=== PATIENT | male | born 1965 | race Caucasian/White ===

== ENCOUNTER 2017-05-07 12:07 | Inpatient (IN) | payer OTHER ==
[~2017-05-07] VITALS: Ht 167.6 cm; Wt 92.7 kg
[~2017-05-07 12:07] MED LIST: AMOXICILLIN500 MG PO; BACTRIM DS 8001 TA1 PO; BENADRYL25 M1 PO; BOTOX IJ; CARAFATE1 G1 PO; CIPROFLOXACIN500 MG PO; CLARITIN10 MG PO; DELTASONE20 MG PO; EPIPEN 0.3MG0.3 MG IM; ERYTHROMYCIN5 MG/G2 OPH; FISH OIL1000 MG PO; FLONASE 0.05% 121 EA NAS; FLONASE ALLERG9.9 ML NAS; Fioricet 325 MG1 TAB PO; HYDROCHLOROTH12.5 M2 PO; IBUPROFEN 30 M800 MG PO; KEFLEX500 MG PO; NORCO 325 MG-51 TAB PO; PERCOCET 325 MG1 TA2 PO; PRILOSEC20 MG PO; PRILOSEC40 MG PO; SILVADENE1% T; TOBREX 5 ML5 M1 OPH; TOPIRAMATE50 M2 PO; TRICOR134 MG PO; VENTOLIN H0.09 MG/AC INH; VERAPAMIL HCL180 MG PO; XANAX1 MG PO; ZANTAC 150150 MG PO
[2017-05-07] MEDS ORDERED: FENOFIBRATE120 MG PO (12:15)
[2017-05-07 12:16] VITALS: BP 137/96
[2017-05-07 13:38] LABS: BASO % 0.4 % (0.0-1.0); EOS # 0.2 10*3/uL (0.0-0.4); EOS % 1.7 % (1.0-4.0); HEMATOCRIT 48.3 % (42.0-52.0); HEMOGLOBIN 16.2 g/dl (14.0-18.0); LYMPH # 2.4 10*3/uL (1.3-4.4); LYMPH % 24.9 % (27.0-41.0); MEAN CELL VOLUME 88.6 fl (80.0-94.0); MEAN CORPUSCULAR HGB 29.7 pg (27.0-31.0); MEAN CORPUSCULAR HGB CONC 33.5 g/dl (33.0-37.0); MONO # 0.6 10*3/uL (0.1-1.0); MONO % 6.5 % (3.0-9.0); NEUT # 6.5 10*3/uL (2.3-7.9); NEUT % 66.2 % (47.0-73.0); PLATELET COUNT AUTOMATED 282 10*3/uL (130-400); RED BLOOD COUNT 5.45 10*6/uL (4.50-5.90); RED CELL DISTRI WIDTH 12.7 % (0-14.5); WHITE BLOOD COUNT 9.8 10*3/uL (4.8-10.8)
[2017-05-07 13:49] LABS: PROTHROMBIN TIME 10.8 SECONDS (9.0-12.4)
[2017-05-07 13:53] LABS: BILIRUBIN NEGATIVE (NEGATIVE); BLOOD NEGATIVE (NEGATIVE); CLARITY CLEAR (CLEAR); COLOR YELLOW (YELLOW); GLUCOSE NEGATIVE (NEGATIVE); KETONE NEGATIVE (NEGATIVE); LEUKO ESTERASE NEGATIVE (NEGATIVE); NITRITE NEGATIVE (NEGATIVE); PROTEIN 1+ (NEGATIVE); SPECIFIC GRAVITY 1.025 (1.005-1.030); UROBILINOGEN 0.2 E.U./dl (0.2-1.0)
[2017-05-07 13:53] LABS: ALBUMIN 4.4 gm/dl (3.1-4.5); ALKALINE PHOSPHATASE 75 U/L (45-117); BILIRUBIN, TOTAL 0.5 mg/dl (0.2-1.0); BUN 13 mg/dl (7-24); CARBON DIOXIDE 25 mmol/L (21-32); CHLORIDE 106 mmol/L (98-107); EST GLOM FILT AFRICAN AMERICAN > 60 ml/min; GLUCOSE 87 mg/dL (65-99); MAGNESIUM 1.9 mg/dL (1.5-2.1); POTASSIUM 4.1 mmol/L (3.5-5.1); SGOT/AST 23 IU/L (3-35); SGPT/ALT 32 U/L (12-78); SODIUM 139 mmol/L (136-145); TOTAL PROTEIN 7.9 gm/dL (6.4-8.2)
[2017-05-07 13:55] LABS: URINE AMPHETAMINES < 1000 (1000ng/ml); URINE BARBITURATES < 200 (200ng/ml); URINE COCAINE < 300 (300ng/ml)
[2017-05-07 14:00] LABS: BACTERIA 2+; EPITHELIAL CELLS 0-2; URINE REFLEX COMMENT YES (NO); WBC 0-2 wbc/hpf (0-5)
[2017-05-07 14:31] VITALS: BP 130/77
[2017-05-07] MEDS ORDERED: PROVENTIL HFA6.7 GM INH (14:51)
[2017-05-07 15:00] VITALS: BP 130/77
[2017-05-07 16:00] VITALS: BP 115/78
[2017-05-07 20:00] VITALS: BP 112/70
[2017-05-08] VITALS: BP 106/66
[2017-05-08 08:00] VITALS: BP 109/64
[2017-05-08 12:00] VITALS: BP 105/59
[2017-05-08 16:00] VITALS: BP 128/74
[2017-05-08 20:00] VITALS: BP 116/73
[2017-05-09] VITALS: BP 94/54
[2017-05-09 08:00] VITALS: BP 117/79; BP 123/70
[2017-05-09 12:00] VITALS: BP 113/61
== END 2017-05-09 14:31 | disposition left against medical advice (07) | DRG 894 ==
LOC: ED 12:07 → EDHOLD 13:28 → 5E 13:28
PROVIDERS: Emergency Medicine
DX: F10.29 Alcohol dependence with unspecified alcohol-induced disorder (principal); F11.20 Opioid dependence, uncomplicated; I10 Essential (primary) hypertension; F13.20 Sedative, hypnotic or anxiolytic dependence, uncomplicated; G43.901 Migraine, unspecified, not intractable, with status migrainosus; H54.8 Legal blindness, as defined in USA; E78.5 Hyperlipidemia, unspecified; F41.1 Generalized anxiety disorder; G89.29 Other chronic pain; K21.9 Gastro-esophageal reflux disease without esophagitis; T42.4X5A Adverse effect of benzodiazepines, initial encounter; F17.210 Nicotine dependence, cigarettes, uncomplicated; Z53.21 Procedure and treatment not carried out due to patient leaving prior to being seen by health care provider; Z88.1 Allergy status to other antibiotic agents; Z88.8 Allergy status to other drugs, medicaments and biological substances; Z79.899 Other long term (current) drug therapy; Z90.49 Acquired absence of other specified parts of digestive tract; Z80.9 Family history of malignant neoplasm, unspecified; Z82.5 Family history of asthma and other chronic lower respiratory diseases; Z71.6 Tobacco abuse counseling; Y92.89 Other specified places as the place of occurrence of the external cause

== ENCOUNTER 2017-06-19 12:59 | Emergency (ER) | payer OTHER ==
[~2017-06-19] VITALS: Ht 167.6 cm; Wt 90.7 kg
[~2017-06-19 12:59] MED LIST changes: +FENOFIBRATE120 MG PO; +PROVENTIL HFA6.7 GM INH
[2017-06-19] MEDS ORDERED: CEPHALEXIN500 M1 PO (17:05)
== END 2017-06-19 20:00 | disposition home or self-care (01) ==
LOC: ED 12:59
DX: M79.89 Other specified soft tissue disorders (principal); F17.200 Nicotine dependence, unspecified, uncomplicated; Z79.899 Other long term (current) drug therapy; Z88.6 Allergy status to analgesic agent; Z88.1 Allergy status to other antibiotic agents

== ENCOUNTER → 2020-06-29 | Outpatient (CLI) | payer OTHER ==
[~2020-06-29] MED LIST changes: +CEPHALEXIN500 M1 PO; +LOTRISONE CREAM15 GM T; +PREDNISONE20 M1 PO
== END | disposition home or self-care (01) ==
LOC: COVID19 01:17
PROVIDERS: ATTEND Nurse Practitioner Primary Care
DX: Z20.828 Contact with and (suspected) exposure to other viral communicable diseases (principal)

== ENCOUNTER 2021-01-08 02:56 | Emergency (ER) | payer OTHER ==
[~2021-01-08] VITALS: Ht 170.1 cm; Wt 99.8 kg
[2021-01-08] MEDS ORDERED: NAPROSYN500 MG PO (03:23)
== END 2021-01-08 03:46 | disposition home or self-care (01) ==
LOC: ED 02:56
DX: S93.401A Sprain of unspecified ligament of right ankle, initial encounter (principal); S90.01XA Contusion of right ankle, initial encounter; Z79.899 Other long term (current) drug therapy; Z88.6 Allergy status to analgesic agent; Z79.2 Long term (current) use of antibiotics; Z90.49 Acquired absence of other specified parts of digestive tract; Z98.890 Other specified postprocedural states; W19.XXXA Unspecified fall, initial encounter; Y93.89 Activity, other specified; Y92.89 Other specified places as the place of occurrence of the external cause; Y99.8 Other external cause status

== ENCOUNTER 2021-03-10 22:04 | Emergency (ER) | payer OTHER ==
[~2021-03-10] VITALS: Ht 167.6 cm; Wt 81.6 kg
[~2021-03-10 22:04] MED LIST changes: +NAPROSYN500 MG PO
== END 2021-03-10 22:38 | disposition home or self-care (01) ==
LOC: ED 22:04
DX: L25.9 Unspecified contact dermatitis, unspecified cause (principal); Z88.8 Allergy status to other drugs, medicaments and biological substances; Z79.899 Other long term (current) drug therapy; Z98.890 Other specified postprocedural states

== ENCOUNTER 2021-03-14 22:48 | Emergency (ER) | payer OTHER ==
[~2021-03-14] VITALS: Ht 167.6 cm; Wt 97.5 kg
[2021-03-15] MEDS ORDERED: MEDROL DOSEPAK4 MG PO (00:26)
== END 2021-03-15 00:41 | disposition home or self-care (01) ==
LOC: ED 22:48
DX: L23.7 Allergic contact dermatitis due to plants, except food (principal); F17.200 Nicotine dependence, unspecified, uncomplicated; G89.29 Other chronic pain; I10 Essential (primary) hypertension; K21.9 Gastro-esophageal reflux disease without esophagitis; G40.909 Epilepsy, unspecified, not intractable, without status epilepticus; Z79.899 Other long term (current) drug therapy; Z88.6 Allergy status to analgesic agent; Z90.49 Acquired absence of other specified parts of digestive tract; Z88.5 Allergy status to narcotic agent; Z88.8 Allergy status to other drugs, medicaments and biological substances

== ENCOUNTER 2021-04-26 10:34 | Emergency (ER) | payer OTHER ==
[~2021-04-26 10:34] MED LIST changes: +MEDROL DOSEPAK4 MG PO
[2021-04-26] MEDS ORDERED: CEPHALEXIN500 M1 PO (13:17)
== END 2021-04-26 13:30 | disposition home or self-care (01) ==
LOC: ED 10:34
DX: S91.331A Puncture wound without foreign body, right foot, initial encounter (principal); F17.200 Nicotine dependence, unspecified, uncomplicated; Z88.6 Allergy status to analgesic agent; Z88.1 Allergy status to other antibiotic agents; Z79.899 Other long term (current) drug therapy; Z79.2 Long term (current) use of antibiotics; Z90.49 Acquired absence of other specified parts of digestive tract; Z96.22 Myringotomy tube(s) status; W22.8XXA Striking against or struck by other objects, initial encounter; Y93.89 Activity, other specified; Y92.89 Other specified places as the place of occurrence of the external cause; Y99.8 Other external cause status

== ENCOUNTER 2021-06-15 08:25 | Emergency (ER) | payer OTHER ==
[~2021-06-15] VITALS: Ht 167.6 cm; Wt 95.3 kg
[2021-06-15] MEDS ORDERED: PREDNISONE10 MG PO (08:55)
== END 2021-06-15 09:15 | disposition home or self-care (01) ==
LOC: ED 08:25
DX: L23.7 Allergic contact dermatitis due to plants, except food (principal); Z88.1 Allergy status to other antibiotic agents; Z88.8 Allergy status to other drugs, medicaments and biological substances; Z79.899 Other long term (current) drug therapy

== ENCOUNTER → 2022-04-25 | Day surgery (SDC) | payer OTHER ==
[~2022-04-25] VITALS: Ht 167.6 cm; Wt 99.8 kg
[~2022-04-25] MED LIST changes: +ALLERGY RELIEF25 MG PO; +EPIPEN 2-P0.3 MG/0.3 IJ; +LIPITOR40 MG PO; +PREDNISONE10 MG PO; +PREVACID30 M2 PO; +UBRELVY50 MG PO; +VENT7GM INH
[2022-04-25 08:15] VITALS: BP 126/71
[2022-04-25 08:55] VITALS: BP 110/73
[2022-04-25 09:10] VITALS: BP 106/75
[2022-04-25 09:25] VITALS: BP 102/40
== END | disposition home or self-care (01) ==
LOC: SDC 04-15 11:00
PROVIDERS: ATTEND Surgery
DX: Z12.11 Encounter for screening for malignant neoplasm of colon (principal); K29.50 Unspecified chronic gastritis without bleeding; D12.4 Benign neoplasm of descending colon; K57.30 Diverticulosis of large intestine without perforation or abscess without bleeding; D12.5 Benign neoplasm of sigmoid colon; K21.9 Gastro-esophageal reflux disease without esophagitis; F41.9 Anxiety disorder, unspecified; G43.909 Migraine, unspecified, not intractable, without status migrainosus; Z86.010 Personal history of colon polyps; E78.00 Pure hypercholesterolemia, unspecified; Z88.0 Allergy status to penicillin; Z88.8 Allergy status to other drugs, medicaments and biological substances; Z79.899 Other long term (current) drug therapy; Z98.890 Other specified postprocedural states

== ENCOUNTER 2022-06-25 22:44 | Emergency (ER) | payer OTHER ==
[~2022-06-25] VITALS: Ht 167.6 cm; Wt 97.5 kg
[2022-06-26] MEDS ORDERED: PREDNISONE20 M1 PO (00:41)
== END 2022-06-26 01:01 | disposition home or self-care (01) ==
LOC: ED 22:44
DX: M17.12 Unilateral primary osteoarthritis, left knee (principal); Z88.0 Allergy status to penicillin; Z88.1 Allergy status to other antibiotic agents; Z88.8 Allergy status to other drugs, medicaments and biological substances; Z79.899 Other long term (current) drug therapy; Z90.49 Acquired absence of other specified parts of digestive tract; Z98.890 Other specified postprocedural states

== ENCOUNTER 2022-10-09 09:20 | Emergency (ER) | payer OTHER ==
[~2022-10-09] VITALS: Wt 95.3 kg
[2022-10-09 10:23] LABS: BASO # 0.1 10*3/uL (0.0-0.1); BASO % 0.4 % (0.0-1.0); EOS # 0.2 10*3/uL (0.0-0.4); EOS % 1.5 % (1.0-4.0); HEMATOCRIT 44.2 % (42.0-52.0); LYMPH % 21.3 % (27.0-41.0); MEAN CELL VOLUME 87.7 fl (80.0-94.0); MEAN CORPUSCULAR HGB 29.2 pg (27.0-31.0); MEAN CORPUSCULAR HGB CONC 33.3 g/dl (33.0-37.0); MEAN PLATELET VOLUME 9.6 fl (9.6-12.3); MONO # 0.8 10*3/uL (0.1-1.0); MONO % 5.5 % (3.0-9.0); NEUT # 9.8 10*3/uL (2.3-7.9); PLATELET COUNT AUTOMATED 256 10*3/uL (130-400); RED BLOOD COUNT 5.04 10*6/uL (4.50-5.90); RED CELL DISTRI WIDTH 13.3 % (0-14.5); WHITE BLOOD COUNT 13.8 10*3/uL (4.8-10.8)
[2022-10-09 10:32] LABS: BILIRUBIN Negative (Negative); BLOOD Negative (Negative); CLARITY Clear (Clear); COLOR Yellow (Yellow); GLUCOSE Negative (Negative); KETONE Negative (Negative); LEUKO ESTERASE Negative (Negative); NITRITE Negative (Negative); SPECIFIC GRAVITY 1.015 (1.001-1.030); UROBILINOGEN 0.2 E.U./dl (0.0-1.0)
[2022-10-09 10:46] LABS: BACTERIA TRACE; WBC 0-2 wbc/hpf (0-5)
[2022-10-09 10:50] LABS: ALKALINE PHOSPHATASE 74 U/L (46-116); BUN 13 mg/dl (9-23); CHLORIDE 101 mmol/L (98-107); LIPASE 32 U/L (12-53); POTASSIUM 3.7 mmol/L (3.4-5.1); SGPT/ALT 29 U/L (10-49); TOTAL PROTEIN 7.3 gm/dL (6.0-8.0)
[2022-10-09] MEDS ORDERED: DOXYCYCLINE HY100 M3 PO (11:45)
== END 2022-10-09 11:52 | disposition home or self-care (01) ==
LOC: ED 09:20
PROVIDERS: Family Medicine
DX: N39.0 Urinary tract infection, site not specified (principal); Z88.0 Allergy status to penicillin; Z88.1 Allergy status to other antibiotic agents; Z88.8 Allergy status to other drugs, medicaments and biological substances; Z79.899 Other long term (current) drug therapy; Z90.49 Acquired absence of other specified parts of digestive tract; Z98.890 Other specified postprocedural states

== ENCOUNTER 2023-04-13 18:46 | Emergency (ER) | payer OTHER ==
[~2023-04-13] VITALS: Ht 175.2 cm; Wt 95.3 kg
[~2023-04-13 18:46] MED LIST changes: +DOXYCYCLINE HY100 M3 PO
[2023-04-13] MEDS ORDERED: IBUPROFEN600 MG PO (21:07)
== END 2023-04-13 21:19 | disposition home or self-care (01) ==
LOC: ED 18:46
DX: S93.401A Sprain of unspecified ligament of right ankle, initial encounter (principal); I10 Essential (primary) hypertension; K21.9 Gastro-esophageal reflux disease without esophagitis; F41.9 Anxiety disorder, unspecified; G43.909 Migraine, unspecified, not intractable, without status migrainosus; Z87.442 Personal history of urinary calculi; Z88.0 Allergy status to penicillin; Z88.5 Allergy status to narcotic agent; Z88.8 Allergy status to other drugs, medicaments and biological substances; Z90.49 Acquired absence of other specified parts of digestive tract; Z98.890 Other specified postprocedural states; Z98.41 Cataract extraction status, right eye; Z72.0 Tobacco use; F10.10 Alcohol abuse, uncomplicated; W10.8XXA Fall (on) (from) other stairs and steps, initial encounter; Y93.89 Activity, other specified; Y92.009 Unspecified place in unspecified non-institutional (private) residence as the place of occurrence of the external cause; Y99.8 Other external cause status

== ENCOUNTER 2023-05-24 08:44 | Emergency (ER) | payer OTHER ==
[~2023-05-24] VITALS: Wt 99.8 kg
[~2023-05-24 08:44] MED LIST changes: +IBUPROFEN600 MG PO
== END 2023-05-24 11:19 | disposition home or self-care (01) ==
LOC: ED 08:44
DX: S93.401A Sprain of unspecified ligament of right ankle, initial encounter (principal); K21.9 Gastro-esophageal reflux disease without esophagitis; F41.9 Anxiety disorder, unspecified; G43.909 Migraine, unspecified, not intractable, without status migrainosus; Z87.442 Personal history of urinary calculi; Z88.0 Allergy status to penicillin; Z88.5 Allergy status to narcotic agent; Z88.8 Allergy status to other drugs, medicaments and biological substances; Z90.49 Acquired absence of other specified parts of digestive tract; Z98.890 Other specified postprocedural states; Z72.0 Tobacco use; X58.XXXA Exposure to other specified factors, initial encounter; Y93.89 Activity, other specified; Y92.89 Other specified places as the place of occurrence of the external cause; Y99.8 Other external cause status

== ENCOUNTER → 2023-09-09 | Outpatient (CLI) | payer OTHER | END | disposition home or self-care (01) | LOC: CT 09-02 08:00 | PROVIDERS: ATTEND Family Medicine | DX: J32.1 Chronic frontal sinusitis (principal); Z98.890 Other specified postprocedural states; H05.89 Other disorders of orbit; J34.9 Unspecified disorder of nose and nasal sinuses ==

== ENCOUNTER → 2024-08-09 | Outpatient (CLI) | payer OTHER ==
[2024-08-09 10:17] LABS: BILIRUBIN Negative (Negative); BLOOD Negative (Negative); CLARITY Clear (Clear); COLOR Yellow (Yellow); GLUCOSE Negative (Negative); KETONE Negative (Negative); LEUKO ESTERASE Negative (Negative); NITRITE Negative (Negative); PH 5.5 (4.5-8.0); SPECIFIC GRAVITY 1.015 (1.001-1.030); UROBILINOGEN 0.2 E.U./dl (0.0-1.0)
[2024-08-09 10:28] LABS: BACTERIA TRACE; EPITHELIAL CELLS 0-2; MUCOUS TRACE; RBC 0-2 rbc/hpf (0-2); WBC 0-2 wbc/hpf (0-5)
[2024-08-10 09:05] LABS: TOTAL PROTEIN, SERUM 6.6 g/dL (6.0-8.5)
[2024-08-10 15:05] LABS: FREE KAPPA LIGHT CHAINS 15.1 mg/L (3.3-19.4); FREE LAMBDA LIGHT CHAINS 11.8 mg/L (5.7-26.3); KAPPA/LAMBDA RATIO 1.28 (0.26-1.65)
[2024-08-10 17:04] LABS: A/G RATIO 1.4 (0.7-1.7); ALBUMIN 3.8 g/dL (2.9-4.4); ALPHA-1-GLOBULIN 0.1 g/dL (0.0-0.4); ALPHA-2-GLOBULIN 0.9 g/dL (0.4-1.0); BETA GLOBULIN 1.1 g/dL (0.7-1.3); GAMMA GLOBULIN 0.7 g/dL (0.4-1.8); GLOBULIN, TOTAL 2.8 g/dL (2.2-3.9)
[2024-08-11 16:06] LABS: ALBUMIN, URINE 81.8 % (.); ALPHA-1-GLOBULIN, URINE 2.3 % (.); ALPHA-2-GLOBULIN, URINE 3.4 % (.); BETA GLOBULIN, URINE 9.8 % (.); GAMMA GLOBULIN, URINE 2.6 % (.); M-SPIKE, % Not Observed % (Not Observed); PROTEIN,TOTAL - URINE RANDOM 31.1 mg/dL (Not Estab.)
== END | disposition home or self-care (01) ==
LOC: CT 03:19 → LAB 03:19 → CT 08:00
PROVIDERS: Student in an Organized Health Care Education/Training Program; ATTEND Family Medicine
DX: Z12.2 Encounter for screening for malignant neoplasm of respiratory organs (principal); R80.9 Proteinuria, unspecified; J43.9 Emphysema, unspecified; R91.1 Solitary pulmonary nodule; Z90.49 Acquired absence of other specified parts of digestive tract; F17.210 Nicotine dependence, cigarettes, uncomplicated

== ENCOUNTER 2024-12-09 11:04 | Emergency (ER) | payer OTHER ==
[~2024-12-09] VITALS: Wt 95.3 kg
[2024-12-09] MEDS ORDERED: OXYCODON-ACETA1 EACH PO (11:14)
[2024-12-09 11:43] LABS: BASO % 0.4 % (0.0-1.0); EOS # 0.2 10*3/uL (0.0-0.4); EOS % 1.5 % (1.0-4.0); HEMATOCRIT 39.4 % (42.0-52.0); MEAN CELL VOLUME 87.2 fl (80.0-94.0); MEAN CORPUSCULAR HGB 28.3 pg (27.0-31.0); MEAN CORPUSCULAR HGB CONC 32.5 g/dl (33.0-37.0); MEAN PLATELET VOLUME 9.3 fl (9.6-12.3); MONO # 0.6 10*3/uL (0.1-1.0); MONO % 5.8 % (3.0-9.0); NEUT # 8.2 10*3/uL (2.3-7.9); NEUT % 81.5 % (47.0-73.0); PLATELET COUNT AUTOMATED 311 10*3/uL (130-400); RED BLOOD COUNT 4.52 10*6/uL (4.50-5.90); RED CELL DISTRI WIDTH 13.2 % (0-14.5); WHITE BLOOD COUNT 10.1 10*3/uL (4.8-10.8)
[2024-12-09 12:19] LABS: BUN 13 mg/dl (9-23); CHLORIDE 99 mmol/L (98-107); POTASSIUM 3.3 mmol/L (3.4-5.1); URIC ACID 6.5 mg/dL (3.7-9.2)
[2024-12-09] MEDS ORDERED: NAPROSYN500 MG PO (13:13)
[2024-12-09] MEDS ORDERED: PREDNISONE10 MG PO (13:13)
[2024-12-09] MEDS ORDERED: methylPREDNISolone sod succ 125 MG VIAL IM ONE (13:15)
== END 2024-12-09 13:15 | disposition home or self-care (01) ==
LOC: ED 11:04
PROVIDERS: Physician Assistant Medical
DX: M10.062 Idiopathic gout, left knee (principal); M10.072 Idiopathic gout, left ankle and foot; I10 Essential (primary) hypertension; F41.9 Anxiety disorder, unspecified; K21.9 Gastro-esophageal reflux disease without esophagitis; E78.5 Hyperlipidemia, unspecified; G43.909 Migraine, unspecified, not intractable, without status migrainosus; Z88.1 Allergy status to other antibiotic agents; Z88.0 Allergy status to penicillin; Z88.6 Allergy status to analgesic agent; Z79.899 Other long term (current) drug therapy; Z90.49 Acquired absence of other specified parts of digestive tract; Z96.22 Myringotomy tube(s) status

== ENCOUNTER → 2025-04-19 | Outpatient (CLI) | payer OTHER ==
[~2025-04-19] MED LIST changes: +OXYCODON-ACETA1 EACH PO
== END | disposition home or self-care (01) ==
LOC: CT 08:52
PROVIDERS: ATTEND Urology
DX: D73.89 Other diseases of spleen (principal); R10.9 Unspecified abdominal pain; Z90.49 Acquired absence of other specified parts of digestive tract

== ENCOUNTER → 2025-05-17 | Outpatient (CLI) | payer OTHER ==
[2025-05-17 08:38] LABS: BASO # 0.1 10*3/uL (0.0-0.1); BASO % 0.5 % (0.0-1.0); EOS # 0.4 10*3/uL (0.0-0.4); EOS % 3.8 % (1.0-4.0); MEAN CELL VOLUME 88.9 fl (80.0-94.0); MEAN CORPUSCULAR HGB 29.5 pg (27.0-31.0); MEAN PLATELET VOLUME 10.0 fl (9.6-12.3); MONO # 0.6 10*3/uL (0.1-1.0); MONO % 6.0 % (3.0-9.0); NEUT # 6.0 10*3/uL (2.3-7.9); NEUT % 61.4 % (47.0-73.0); NUCLEATED RED BLOOD CELL 0.0 % (0.0-0.0); NUCLEATED RED BLOOD CELL 0.0 10*3/uL (0.0-0.0); PLATELET COUNT AUTOMATED 223 10*3/uL (130-400); RED CELL DISTRI WIDTH 13.4 % (0-14.5)
[2025-05-17 09:07] LABS: BUN 11 mg/dl (9-23); SGPT/ALT 26 U/L (5-49)
== END ==
LOC: LAB 07:53
PROVIDERS: ATTEND Nurse Practitioner
DX: E29.1 Testicular hypofunction (principal); R53.83 Other fatigue; D40.0 Neoplasm of uncertain behavior of prostate

== ENCOUNTER → 2025-05-27 | Outpatient (CLI) | payer OTHER ==
[2025-05-27 11:39] LABS: LDH 154 U/L (120-246)
[2025-05-27 11:47] LABS: BETA-HCG, TUMOR MARKER < 3.0 mIU/mL (0-3)
== END | disposition home or self-care (01) ==
LOC: LAB 10:54
PROVIDERS: ATTEND Urology
DX: N50.819 Testicular pain, unspecified (principal)